=== PATIENT | female | born 1960 | race Caucasian/White ===

== ENCOUNTER 2022-06-16 08:55 | Outpatient (CLI) | payer BC, SELFPAY ==
--- NOTE | 2022-06-16 09:15 | CRLHL7_ITS ---
For Patients: As a result of the Century Cures Act, medical imaging exams and procedure reports are released immediately into your electronic medical record. You may view this report before your referring provider. If you have questions, please contact your health care provider. BILATERAL SCREENING MAMMOGRAM WITH COMPUTER-AIDED DETECTION TECHNIQUE: CC and MLO views were obtained. These mammographic images have been obtained using full-field digital technique. These mammographic images were interpreted with the benefit of computer-aided detection. COMPARISON FILM: 02/20/21, 09/29/18, 10/25/14 diagnostic. FINDINGS: The breasts are heterogeneously dense, which may obscure small masses IMPRESSION: There is no radiographic evidence for malignancy. ASSESSMENT: BI-RADS Category 1: Negative RECOMMENDATION: Routine screening mammogram in 1 year. A lay language report of this examination will be provided to the patient. Beto Isidro M.D. Diagnostic Radiologist [email or web address] EREN/Dictated by: Beto Isidro MD @ 06/16/2022 12:51:00 PM (Electronically Signed)
== END 2022-06-16 08:56 | disposition home or self-care (01) ==
PROVIDERS: PCP Physician Assistant Medical; Visit Provider Physician Assistant Medical
DX: Z12.31 Encounter for screening mammogram for malignant neoplasm of breast (principal); R92.2 Inconclusive mammogram
CPT/HCPCS: 77067

== ENCOUNTER 2022-07-12 08:14 | Outpatient (CLI) | payer BC, SELFPAY | END 2022-07-12 08:15 | disposition home or self-care (01) | LOC: OP CLINIC 08:14 | PROVIDERS: PCP Physician Assistant Medical; Visit Provider Surgery | DX: Z85.038 Personal history of other malignant neoplasm of large intestine (principal); K63.5 Polyp of colon; Z15.09 Genetic susceptibility to other malignant neoplasm | CPT/HCPCS: 45380; 45381; 45385; 88305; 99153; J2250; J3010 ==